=== PATIENT | male | born 1985 | race American Indian/Alaskan Native ===

== ENCOUNTER 2018-01-12 17:12 | Emergency (ER) | payer SELFPAY ==
--- NOTE | 2018-01-12 17:22 | EDM.PDOC ---
ED HPI GENERAL MEDICAL PROBLEM - General Chief Complaint: Back Pain or Injury Stated Complaint: PAIN IN THE RIBS AND LOWER BACK Time Seen by Provider: 01/12/18 17:20 Source of Information: Reports: Patient History Limitations: Reports: No Limitations - History of Present Illness INITIAL COMMENTS - FREE TEXT/NARRATIVE: HISTORY AND PHYSICAL: History of present illness: Patient is a 33-year-old male who presents to the emergency room today with complaints of left sided chest wall pain. 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 He currently has an abrasion to the left chest wall, left elbow and left thigh. His main concern is the left chest/rib area and left shoulder. He states he has increased pain with range of motion. Pain to left chest when lying flat or taking in deep breaths He denies hitting his head or any loss of consciousness. Declines any other extremity pain or involvement. Denies any fever, chills, abdominal pain, nausea, vomiting, diarrhea, constipation or dysuria. Review of systems: As per history of present illness and below otherwise all systems reviewed and negative. Past medical history: As per history of present illness and as reviewed below otherwise noncontributory. Surgical history: As per history of present illness and as reviewed below otherwise noncontributory. Social history: No reported history of drug or alcohol abuse. Family history: As per history of present illness and as reviewed below otherwise noncontributory. Physical exam: General: Well-developed and well-nourished 33-year-old male. Alert and oriented. Nontoxic appearing and in no acute distress. HEENT: Atraumatic, normocephalic, pupils equal and reactive bilaterally, negative for conjunctival pallor or scleral icterus, mucous membranes moist, throat clear, neck supple, nontender, trachea midline. No drooling or trismus noted. No meningeal signs Lungs: Clear to auscultation, breath sounds equal bilaterally, left lateral chest wall pain. Heart: S1S2, regular rate and rhythm without overt murmur Abdomen: Soft, nondistended, nontender. Negative for masses or hepatosplenomegaly. Negative for costovertebral tenderness. Pelvis: Stable nontender. Genitourinary: Deferred. Rectal: Deferred. Skin: Superficial abrasion noted to left chest wall, midaxillary line. Abrasion to left elbow and left anterior thigh. No lesions or rashes noted. Extremities: Limited range of motion to the left shoulder with frontal and lateral extension. Strong radial pulse. Capillary refill less than 3 seconds. Equal and strong grasp strength. No pain to other extremities. Otherwise full ROM to other extremities. He is negative for cords or calf pain. Neurovascular unremarkable. C-spine/Back: No pinpoint vertebral tenderness upon palpation. No crepitus, step -offs or obvious deformities. He is ambulatory within even and steady gait. No urinary or fecal incontinence. He is able to walk on heels and toes without difficulty. Denies any numbness or tingling to his distal extremities. Neuro: Awake, alert, oriented. Cranial nerves II through XII unremarkable. Cerebellum unremarkable. Motor and sensory unremarkable throughout. Exam nonfocal. Notes: Diagnostics: X-ray chest with left rib detail, left shoulder x-ray Therapeutics: Tdap, Toradol, Sling Prescription: Dana 5/325 (#15) Impression: Left Shoulder Injury Rib Contusion Plan: 1. Rest, ice, elevate the affected extremity as able. Use the sling for comfort. 2. Tylenol and/or Ibuprofen as needed for pain. Dana as needed for moderate to severe pain. Do not take while driving as it may cause drowsiness. Please take with food. 3. Please follow-up with your primary caregiver or the orthopedic provider in the next 1-2 days. Return to the ED as needed and as discussed. Definitive disposition and diagnosis as appropriate pending reevaluation and review of above. Onset: Today Left Back Pain Score (Numeric/FACES): 8 - Related Data Allergies Allergy/AdvReac Type Severity Reaction Status Date / Time No Known Allergies Allergy Verified 01/12/18 17:30 ED ROS GENERAL - Review of Systems Review Of Systems: ROS reveals no pertinent complaints other than HPI. ED EXAM,LOWER BACK PAIN/INJURY - Physical Exam Exam: See Below (See dictation) Course - Vital Signs Last Recorded V/S: Last Vital Signs Temp 98.4 F 01/12/18 17:24 Pulse 72 01/12/18 18:18 Resp 18 01/12/18 18:18 BP 121/83 01/12/18 18:18 Pulse Ox 98 01/12/18 18:18 - Orders/Labs/Meds Orders: Active Orders 24 hr Category Date Time Status Vaccines to be Administered [RC] PER UNIT ROUTINE Care 01/12/18 17:35 Active Ribs 2V w Chest Lt [CR] Stat Exams 01/12/18 17:35 Taken Shoulder Comp Lt [CR] Stat Exams 01/12/18 17:35 Taken DME for Discharge [COMM] Stat Oth 01/12/18 19:44 Ordered Meds: Medications Discontinued Medications Generic Name Dose Route Start Last Admin Trade Name Freq PRN Reason Stop Dose Admin Diphtheria/Tetanus/Acell Pertussis 0.5 ml 01/12/18 17:35 01/12/18 18:00 Adacel IM 01/12/18 17:36 0.5 ml .ONCE ONE Administration Ketorolac Tromethamine 60 mg 01/12/18 17:35 01/12/18 18:03 Toradol IM 01/12/18 17:36 60 mg ONETIME ONE Administration Departure - Departure Time of Disposition: 19:45 Disposition: Home, Self-Care 01 Clinical Impression: Shoulder injury Qualifiers: Encounter type: initial encounter Contusion of rib on left side Qualifiers: Encounter type: initial encounter Qualified Code(s): S20.212A - Contusion of left front wall of thorax, initial encounter - Discharge Information Referrals: PCP,None [Primary Care Provider] - Forms: ED Department Discharge Additional Instructions: The following information is given to patients seen in the emergency department who are being discharged to home. This information is to outline your options for follow-up care. We provide all patients seen in our emergency department with a follow-up referral. The need for follow-up, as well as the timing and circumstances, are variable depending upon the specifics of your emergency department visit. If you don't have a primary care physician on staff, we will provide you with a referral. We always advise you to contact your personal physician following an emergency department visit to inform them of the circumstance of the visit and for follow-up with them and/or the need for any referrals to a consulting specialist. The emergency department will also refer you to a specialist when appropriate. This referral assures that you have the opportunity for follow-up care with a specialist. All of these measure are taken in an effort to provide you with optimal care, which includes your follow-up. Under all circumstances we always encourage you to contact your private physician who remains a resource for coordinating your care. When calling for follow-up care, please make the office aware that this follow-up is from your recent emergency room visit. If for any reason you are refused follow-up, please contact the [facility] Emergency Department at and asked to speak to the emergency department charge nurse. [facility] [address], [place] [id number] [facility] Special[facility] - [facility] Professional Building [address] [place] [address], [address] [place] [address] 1. Rest, ice, elevate the affected extremity as able. Use the sling for comfort. 2. Tylenol and/or Ibuprofen as needed for pain. Dana as needed for moderate to severe pain. Do not take while driving as it may cause drowsiness. Please take with food. 3. Please follow-up with your primary caregiver or the orthopedic provider in the next 1-2 days. Return to the ED as needed and as discussed. - My Orders Last 24 Hours: My Active Orders 01/12/18 17:35 Vaccines to be Administered [RC] PER UNIT ROUTINE Ribs 2V w Chest Lt [CR] Stat Shoulder Comp Lt [CR] Stat 01/12/18 19:44 DME for Discharge [COMM] Stat - Assessment/Plan Last 24 Hours: My Active Orders 01/12/18 17:35 Vaccines to be Administered [RC] PER UNIT ROUTINE Ribs 2V w Chest Lt [CR] Stat Shoulder Comp Lt [CR] Stat 01/12/18 19:44 DME for Discharge [COMM] Stat
[2018-01-12] MEDS ORDERED: Diphtheria,Pertussis(Acell),Tetanus Vaccine 0.5 ML Syringe IM ONE (17:35)
[2018-01-12] MEDS ORDERED: Ketorolac 60 MG/2 ML SDV IM ONE (17:35)
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
== END 2018-01-12 19:58 | disposition home or self-care (01) ==
LOC: MW.ED 17:12
DX: S20.212A Contusion of left front wall of thorax, initial encounter (principal); S49.92XA Unspecified injury of left shoulder and upper arm, initial encounter; S50.312A Abrasion of left elbow, initial encounter; S70.312A Abrasion, left thigh, initial encounter; Z23 Encounter for immunization; V87.8XXA Person injured in other specified noncollision transport accidents involving motor vehicle (traffic), initial encounter
CPT/HCPCS: 71101; 73030; 90471; 90715; 96372; 99283; J1885

== ENCOUNTER 2021-07-12 01:50 | Emergency (ER) | payer MEDICAID ==
[2021-07-12 02:47] LABS: ACETAMINOPHEN <2.0 ug/mL; BLOOD UREA NITROGEN,BUN 4 mg/dL (7.0-18.0); CARBON DIOXIDE,CO2 27.2 mmol/L (21.0-32.0); CHLORIDE,CL 103 mmol/L (98-107); ESTIMATED GFR > 60.0 ml/min; GLUCOSE RANDOM 117 mg/dL (74-106); POTASSIUM,K 4.1 mmol/L (3.5-5.1); SODIUM,NA 141 mmol/L (136-148)
== END 2021-07-12 07:39 | disposition home or self-care (01) ==
LOC: MW.ED 01:50
DX: F32.A Depression, unspecified (principal); R45.851 Suicidal ideations; F10.10 Alcohol abuse, uncomplicated; Y90.8 Blood alcohol level of 240 mg/100 ml or more; I10 Essential (primary) hypertension; E11.9 Type 2 diabetes mellitus without complications
CPT/HCPCS: 36415; 80053; 80143; 80179; 80305-QW; 80307; 81001; 83735; 85025; 99285

== ENCOUNTER 2022-05-30 20:24 | Emergency (ER) | payer MEDICAID ==
[2022-05-30] MEDS ORDERED: Ketorolac 30 MG/ML SDV IM ONE (20:51)
[2022-05-30] MEDS ORDERED: Cyclobenzaprine 5 MG Tab PO STA (22:38)
== END 2022-05-30 23:01 | disposition home or self-care (01) ==
LOC: MW.ED 20:24
DX: S39.012A Strain of muscle, fascia and tendon of lower back, initial encounter (principal); W00.0XXA Fall on same level due to ice and snow, initial encounter
CPT/HCPCS: 72125; 72128; 72131; 96372; 99283; A9270; J1885